=== PATIENT | male | born 1990 | race African-American/Black ===

== ENCOUNTER 2022-04-14 16:52 | Emergency (ER) | payer SELFPAY ==
[2022-04-14 17:32] VITALS: BP 166/89; PULSE 87; RESP 18; TEMP 38; O2SAT 99
--- NOTE | 2022-04-14 17:37 | ED.GENADULT ---
HPI - General Adult General Chief complaint: Unspecified Stated complaint: body aches Time Seen by Provider: 04/14/22 17:34 History of Present Illness HPI narrative: 31-year-old male presents to the emergency room via EMS for evaluation of body aches and a fever started 3 days ago. Patient also states that he is dizzy occasionally. Denies shortness of breath, cough, difficulty breathing, rhinorrhea, sneezing, abdominal pain, or dysuria. Related Data Allergies Allergy/AdvReac Type Severity Reaction Status Date / Time No Known Allergies Allergy Verified 04/14/22 17:35 Review of Systems Review of Systems: CONSTITUTIONAL: Reports fever, chills, or sweats. EYES: Denies visual changes, redness, or discharge. ENT: Denies rhinorrhea, congestion, sore throat, or otalgia. CARDIOVASCULAR: Denies chest pain, palpitations, or edema. RESPIRATORY: Denies cough or dyspnea. GASTROINTESTINAL: Denies abdominal pain, nausea, vomiting, or diarrhea. GENITOURINARY: Denies dysuria or hematuria. SKIN: Denies rash or itching. MUSCULOSKELETAL: Reports myalgias NEUROLOGIC: Denies headache, numbness, dizziness, or weakness. PSYCHIATRIC: Denies anxiety or depression. Exam Narrative: GENERAL: Well-appearing, well-nourished, and in no acute distress. HEAD: Normocephalic, atraumatic. EYES: PERRLA and EOMI. ENT: Nares clear, no rhinorrhea or epistaxis. Mucous membranes moist. Oropharynx without tonsillar hypertrophy exudate or other lesions. Bilateral TMs pearly torers nonbulging NECK: Supple. No adenopathy or masses. No carotid bruits or JVD CHEST: Clear to auscultation. No respiratory distress. No wheezes rales or rhonchi HEART: Regular rate and rhythm. No murmur heard. Normal peripheral pulses. ABDOMEN: Soft, nontender, nondistended, normal active bowel sounds. EXTREMITIES: Normal range of motion. No edema. SKIN: Warm, dry, no rash. NEURO: No focal deficits. Alert and oriented x3. PSYCH: Normal mood and affect. Course Vital Signs Vital signs: Vital Signs Temperature 38.0 C H 04/14/22 17:32 Pulse Rate 87 04/14/22 17:32 Respiratory Rate 18 04/14/22 17:32 Blood Pressure 166/89 H 04/14/22 17:32 Pulse Oximetry 99 04/14/22 17:32 Oxygen Delivery Room Air 04/14/22 17:32 Temperature 38.0 C H 04/14/22 17:32 Pulse Rate 87 04/14/22 17:32 Respiratory Rate 18 04/14/22 17:32 Blood Pressure 166/89 H 04/14/22 17:32 Pulse Oximetry 99 04/14/22 17:32 Oxygen Delivery Room Air 04/14/22 17:32 Medical Decision Making Vital Signs Vital Signs: Vital Signs Temperature 38.0 C H 04/14/22 17:32 Pulse Rate 87 04/14/22 17:32 Respiratory Rate 18 04/14/22 17:32 Blood Pressure 166/89 H 04/14/22 17:32 Pulse Oximetry 99 04/14/22 17:32 Oxygen Delivery Room Air 04/14/22 17:32 Temperature 38.0 C H 04/14/22 17:32 Pulse Rate 87 04/14/22 17:32 Respiratory Rate 18 04/14/22 17:32 Blood Pressure 166/89 H 04/14/22 17:32 Pulse Oximetry 99 04/14/22 17:32 Oxygen Delivery Room Air 04/14/22 17:32 Lab Data Labs: Lab Results 04/14/22 Range/Units 17:38 Influenza A (RT-PCR) Negative (Negative) Influenza B (RT-PCR) Negative (Negative) SARS-CoV-2 RNA (RT-PCR) Positive A Discharge Plan Discharge Clinical Impression: COVID Patient Disposition: Home, Self-Care Condition: Stable Instructions: Antibiotic Form, COVID-19 (Coronavirus Disease 2019) (ED) Additional Instructions: Tylenol ibuprofen as needed for body aches and fever. Isolate per CDC guidelines. Follow-up/Referrals: PHYSICIAN NOT ON STAFF,NONSTAFF [Primary Care Provider] - Time of Disposition: 18:38
[2022-04-14 18:31] LABS: Influenza A QL RT-PCR Negative (Negative); Influenza B QL RT-PCR Negative (Negative); SARS-CoV-2 RNA PCR Positive
== END 2022-04-14 18:46 | disposition home or self-care (01) ==
PROVIDERS: Emergency Provider Nurse Practitioner Family
DX: U07.1 COVID-19 (principal)
CPT/HCPCS: 87502; 99283; C9803; U0003; U0005